=== PATIENT | male | born 1985 | race Caucasian/White ===

== ENCOUNTER 2017-01-18 16:52 | Emergency (ER) | payer MEDICAID ==
[2017-01-18 20:04] VITALS: BP 138/81
== END 2017-01-18 20:04 | disposition home or self-care (01) ==
LOC: ED 16:52
DX: Z48.01 Encounter for change or removal of surgical wound dressing (principal); R03.0 Elevated blood-pressure reading, without diagnosis of hypertension

== ENCOUNTER 2017-02-14 18:11 | Emergency (ER) | payer OTHER ==
[~2017-02-14] VITALS: Ht 188 cm; Wt 125.6 kg
[2017-02-14 21:18] VITALS: BP 138/84
== END 2017-02-14 21:18 | disposition home or self-care (01) ==
LOC: ED 18:11
DX: L03.811 Cellulitis of head [any part, except face] (principal); R03.0 Elevated blood-pressure reading, without diagnosis of hypertension

== ENCOUNTER 2017-02-16 08:01 | Emergency (ER) | payer OTHER ==
[2017-02-16 08:56] VITALS: BP 138/76
== END 2017-02-16 08:56 | disposition home or self-care (01) ==
LOC: ED 08:01
DX: L03.811 Cellulitis of head [any part, except face] (principal)
CPT/HCPCS: J0696

== ENCOUNTER 2018-01-12 14:19 | Emergency (ER) | payer OTHER ==
[~2018-01-12] VITALS: Ht 188 cm; Wt 133.4 kg
[2018-01-12 14:20] VITALS: BP 196/101; Ht 188 cm; Wt 133.4 kg
[2018-01-15 08:47] LABS: RAPID PLASMA REAGIN Non Reactive (Non Reactive)
== END 2018-01-12 16:07 | disposition home or self-care (01) ==
LOC: ED 14:19
PROVIDERS: Emergency Medicine
DX: R36.9 Urethral discharge, unspecified (principal); Z90.89 Acquired absence of other organs
CPT/HCPCS: 82962; 87491; 87591; J0696; J2001

== ENCOUNTER 2018-06-27 09:35 | Emergency (ER) | payer OTHER ==
[~2018-06-27] VITALS: Ht 188 cm; Wt 138.8 kg
[2018-06-27 09:42] VITALS: Ht 188 cm; Wt 138.8 kg
[2018-06-27 11:28] VITALS: BP 139/84
== END 2018-06-27 11:28 | disposition home or self-care (01) ==
LOC: ED 09:35
DX: F11.23 Opioid dependence with withdrawal (principal); G89.29 Other chronic pain; M54.5 Low back pain; Z98.890 Other specified postprocedural states
CPT/HCPCS: J1885; Q0162

== ENCOUNTER 2019-04-11 11:28 | Emergency (ER) | payer OTHER ==
[~2019-04-11] VITALS: Ht 188 cm; Wt 133.8 kg
[2019-04-11 12:10] VITALS: Ht 188 cm; Wt 133.8 kg
[2019-04-11 16:44] VITALS: BP 127/98
== END 2019-04-11 16:50 | disposition home or self-care (01) ==
LOC: ED 11:28
DX: M54.5 Low back pain (principal); M51.35 Other intervertebral disc degeneration, thoracolumbar region; V65 Occupant of heavy transport vehicle injured in collision with railway train or railway vehicle; Y93.I9 Activity, other involving external motion; Y92.413 State road as the place of occurrence of the external cause; Y99.8 Other external cause status
CPT/HCPCS: J1100; J1885